=== PATIENT | female | born 1950 | race Caucasian/White ===

== ENCOUNTER 2018-08-16 02:37 | Inpatient (IN) | payer OTHER, MEDICAID ==
[2018-08-16] VITALS (7 sets, daily range): BP systolic 105–157
[~2018-08-16] VITALS: Ht 154.9 cm; Wt 70.3 kg
[2018-08-16] MEDS ORDERED: NACL 0.9% 1,000 ML IV ONE ×2 (02:42→03:00)
[2018-08-16] MEDS ORDERED: MEROPENEM 1 GM in NS 100 ML IV ONE (02:45)
[2018-08-16] MEDS ORDERED: VANCOMYCIN HCL 1,000 MG in NS 250 ML IV ONE (02:45)
[2018-08-16] MEDS ORDERED: VANCOMYCIN HCL 1000 MG/VIAL IV ONE (03:00)
[2018-08-16 03:04] LABS: BASOPHILS # (AUTO) 0.1 K/uL (0.0-0.2); BASOPHILS % (AUTO) 0.8 % (0.0-2.0); HEMATOCRIT 37.5 % (36-48); HEMOGLOBIN 12.2 g/dL (12.0-16.0); LYMPHOCYTES # (AUTO) 0.2 K/uL (1.0-5.5); MEAN CORPUSCULAR HEMOGLOBIN 28 pg (27-31); MEAN CORPUSCULAR HGB CONC 33 % (32-36); MEAN CORPUSCULAR VOLUME 85 fL (79.0-98.0); MONOCYTES # (AUTO) 0.5 K/uL (0.0-1.0); MONOCYTES % (AUTO) 3.3 % (1.7-9.3); NEUTROPHILS # (AUTO) 15.5 K/uL (1.8-7.7); NEUTROPHILS % (AUTO) 94.9 % (40.0-70.0); PLATELET COUNT (AUTO) 415 K/uL (130-430); RED BLOOD CELL COUNT(AUTO) 4.44 MIL/uL (4.2-6.2); RED CELL DISTRIBUTION WIDTH 14.7 % (9.0-15.0); WHITE BLOOD COUNT (AUTO) 16.3 K/uL (4.8-10.8)
[2018-08-16] MEDS ORDERED: MEROPENEM 500 MG VIAL IV ONE (03:09)
[2018-08-16 03:29] LABS: CALCIUM 9.3 mg/dL (8.4-11.0); CREATININE 0.48 mg/dL (0.55-1.30); POTASSIUM 4.2 mmol/L (3.5-5.1)
[2018-08-16 03:35] LABS: ALBUMIN 2.7 g/dL (3.4-4.8); TOTAL BILIRUBIN 3.9 mg/dL (0.0-1.0)
[2018-08-16 03:38] LABS: BILIRUBIN,URINE 3+ (NEGATIVE); BLOOD, URINE 3+ (NEGATIVE); CLARITY/URINE CLEAR (CLEAR); COLOR,URINE AMBER (YELLOW); GLUCOSE,URINE TRACE (NEGATIVE); KETONES,URINE TRACE (NEGATIVE); LEUKOCYTE ESTERASE ,URINE TRACE (NEGATIVE); NITRITE, URINE NEGATIVE (NEGATIVE); PH,URINE 7.5 (5.0-8.0); PROTEIN URINE 2+ (NEGATIVE)
[2018-08-16] MEDS ORDERED: ALBU2.5V7 INH ×2 (03:51→04:22)
[2018-08-16 03:55] LABS: BACTERIA,URINE FEW /HPF (None Seen); RBC,URINE 20-50 /HPF (0-3)
[2018-08-16] MEDS ORDERED: ALBU2TAB4 GT (04:05)
[2018-08-16] MEDS ORDERED: WHEY227P GT (04:08)
[2018-08-16] MEDS ORDERED: BUDE0.5A4 NEB (04:09)
[2018-08-16] MEDS ORDERED: CALC1TAB84 PO (04:10)
[2018-08-16] MEDS ORDERED: CARB200T GT (04:10)
[2018-08-16] MEDS ORDERED: POLY17PO20 GT (04:12)
[2018-08-16] MEDS ORDERED: LEVE500T9 GT (04:13)
[2018-08-16] MEDS ORDERED: LEVO50TA8 GT (04:14)
[2018-08-16] MEDS ORDERED: LISI10TA GT (04:14)
[2018-08-16] MEDS ORDERED: METO25TA6 GT ×2 (04:15→04:16)
[2018-08-16] MEDS ORDERED: MONT10TA25 GT (04:16)
[2018-08-16] MEDS ORDERED: OMEP20CA10 GT (04:17)
[2018-08-16] MEDS ORDERED: MULT-33 GT (04:20)
[2018-08-16] MEDS ORDERED: CIPR7.5D OT (04:23)
[2018-08-16] MEDS ORDERED: LOM2.5 GT (04:25)
[2018-08-16] MEDS ORDERED: BISA-95 RC (04:28)
[2018-08-16] MEDS ORDERED: GUAI5SYR GT (04:33)
[2018-08-16] MEDS ORDERED: IBUP-1969 GT (04:33)
[2018-08-16] MEDS ORDERED: ONDA4TAB5 GT (04:38)
[2018-08-16] MEDS ORDERED: ACET325S17 GT (04:38)
[2018-08-16] MEDS ORDERED: ZINC56.7 TP (04:41)
[2018-08-16] MEDS ORDERED: cloNIDine HCL 0.1 MG TABLET GT PRN (04:45)
[2018-08-16] MEDS ORDERED: SODIUM CHLORIDE GT (04:47)
[2018-08-16] MEDS ORDERED: FLEETMO RC (04:49)
[2018-08-16] MEDS ORDERED: IPRATROPIUM/ALBUTEROL SULFATE 3 ML AMPUL.NEB (DUONEB) INH SCH (06:00)
[2018-08-16] MEDS: NACL 0.9% 1,000 ML IV SCH ×2 (06:57→15:30)
[2018-08-16] MEDS: cefTRIAXone 1 GM in D5W 50 ML IV SCH (09:28)
[2018-08-16] MEDS ORDERED: IPRATROPIUM/ALBUTEROL SULFATE 3 ML AMPUL.NEB (DUONEB) INH PRN (10:45)
[2018-08-16] MEDS ORDERED: MINERAL OIL 133 ML ENEMA RC PRN (10:45)
[2018-08-16] MEDS: ACETAMINOPHEN 325 MG TABLET GT SCH ×4 (11:00→18:13)
[2018-08-16] MEDS: LEVOFLOXACIN 500 MG/D5W 100 ML IV SCH (11:35)
[2018-08-16] MEDS ORDERED: MONTELUKAST 10 MG TABLET GT ONE (11:45)
[2018-08-16] MEDS ORDERED: ALBUTEROL SULFATE 2 MG TABLET GT ONE (11:45)
[2018-08-16] MEDS ORDERED: POLYETHYLENE GLYCOL 3350, 17 GM/ POWD.PACK GT ONE (11:45)
[2018-08-16] MEDS ORDERED: LISINOPRIL 10 MG TABLET (PRINIVIL) GT ONE (11:45)
[2018-08-16] MEDS ORDERED: OMEPRAZOLE 20 MG CAPSULE.DR (PriLOSEC) GT ONE (11:45)
[2018-08-16] MEDS ORDERED: MULTIVITS,CA,MINERALS/IRON/FA 1 TABLET GT ONE (11:45)
[2018-08-16] MEDS: IPRATROPIUM/ALBUTEROL SULFATE 3 ML AMPUL.NEB (DUONEB) INH SCH ×4 (11:53→23:10)
[2018-08-16] MEDS: ACETYLCYSTEINE 20% 4 ML VIAL (RT) INH SCH ×3 (11:53→19:42)
[2018-08-16] MEDS ORDERED: CALCIUM CARBONATE/VITAMIN D3 1 TAB TABLET GT ONE (12:00)
[2018-08-16] MEDS ORDERED: levETIRAcetam 500 MG TABLET GT ONE (12:00)
[2018-08-16] MEDS: NS IV SCH (15:30)
[2018-08-16] MEDS: GENTAMICIN SULFATE IV SCH (15:30)
[2018-08-16] MEDS ORDERED: MIDAZOLAM HCL 5 MG/5 ML VIAL IVP ONE (17:06)
[2018-08-16] MEDS: METOPROLOL TARTRATE 25 MG TABLET GT SCH (18:13)
[2018-08-16] MEDS: BUDESONIDE 0.5 MG/2 ML AMPUL.NEB INH SCH (20:15)
[2018-08-16] MEDS: levETIRAcetam 500 MG TABLET GT SCH (21:16)
[2018-08-16] MEDS: ALBUTEROL SULFATE 2 MG TABLET GT SCH (21:16)
[2018-08-16] MEDS: CALCIUM CARBONATE/VITAMIN D3 1 TAB TABLET GT SCH (21:16)
[2018-08-17] MEDS: ACETAMINOPHEN 325 MG TABLET GT SCH ×6 (00:27→18:54)
[2018-08-17 00:30] VITALS: BP_SYST 123
[2018-08-17] MEDS: NACL 0.9% 1,000 ML IV SCH ×2 (00:32→09:06)
[2018-08-17] MEDS: NS IV SCH ×2 (02:30→15:34)
[2018-08-17] MEDS: GENTAMICIN SULFATE IV SCH ×2 (02:30→15:34)
[2018-08-17] MEDS: IPRATROPIUM/ALBUTEROL SULFATE 3 ML AMPUL.NEB (DUONEB) INH SCH ×6 (04:08→23:02)
[2018-08-17 06:43] LABS: BASOPHILS % (AUTO) 0.3 % (0.0-2.0); EOSINOPHILS # (AUTO) 0.1 K/uL (0.0-0.4); EOSINOPHILS % (AUTO) 1.2 % (0.0-4.0); HEMOGLOBIN 9.6 g/dL (12.0-16.0); LYMPHOCYTES # (AUTO) 0.7 K/uL (1.0-5.5); LYMPHOCYTES % (AUTO) 7.6 % (20.5-51.5); MEAN CORPUSCULAR HEMOGLOBIN 28 pg (27-31); MEAN CORPUSCULAR HGB CONC 33 % (32-36); MEAN CORPUSCULAR VOLUME 86 fL (79.0-98.0); MONOCYTES # (AUTO) 0.5 K/uL (0.0-1.0); MONOCYTES % (AUTO) 4.6 % (1.7-9.3); NEUTROPHILS # (AUTO) 8.4 K/uL (1.8-7.7); NEUTROPHILS % (AUTO) 86.3 % (40.0-70.0); PLATELET COUNT (AUTO) 345 K/uL (130-430); RED BLOOD CELL COUNT(AUTO) 3.39 MIL/uL (4.2-6.2)
[2018-08-17 07:06] LABS: WHITE BLOOD COUNT (AUTO) 9.7 K/uL (4.8-10.8)
[2018-08-17] MEDS: ACETYLCYSTEINE 20% 4 ML VIAL (RT) INH SCH ×4 (07:08→19:37)
[2018-08-17] MEDS: BUDESONIDE 0.5 MG/2 ML AMPUL.NEB INH SCH ×2 (07:08→20:07)
[2018-08-17 07:47] VITALS: BP_SYST 151
[2018-08-17 08:02] LABS: ALBUMIN 2.3 g/dL (3.4-4.8); CALCIUM 9.4 mg/dL (8.4-11.0); CREATININE 0.42 mg/dL (0.55-1.30); POTASSIUM 3.4 mmol/L (3.5-5.1); TOTAL BILIRUBIN 3.2 mg/dL (0.0-1.0)
[2018-08-17 08:06] LABS: HEPATITIS A AB, IgM Negative (Negative); HEPATITIS B CORE AB, IgM Negative (Negative); HEPATITIS B SURFACE AG Negative (Negative)
[2018-08-17] MEDS: LEVOFLOXACIN 500 MG/D5W 100 ML IV SCH (09:03)
[2018-08-17] MEDS: cefTRIAXone 1 GM in D5W 50 ML IV SCH (09:03)
[2018-08-17] MEDS: MULTIVITS,CA,MINERALS/IRON/FA 1 TABLET GT SCH (09:04)
[2018-08-17] MEDS: LEVOTHYROXINE SODIUM 0.05 MG TABLET GT SCH (09:04)
[2018-08-17] MEDS: OMEPRAZOLE 20 MG CAPSULE.DR (PriLOSEC) GT SCH (09:04)
[2018-08-17] MEDS: POLYETHYLENE GLYCOL 3350, 17 GM/ POWD.PACK GT SCH (09:04)
[2018-08-17] MEDS: levETIRAcetam 500 MG TABLET GT SCH ×2 (09:04→21:45)
[2018-08-17] MEDS: MONTELUKAST 10 MG TABLET GT SCH (09:04)
[2018-08-17] MEDS: CALCIUM CARBONATE/VITAMIN D3 1 TAB TABLET GT SCH ×2 (09:05→21:45)
[2018-08-17] MEDS: LISINOPRIL 10 MG TABLET (PRINIVIL) GT SCH (09:05)
[2018-08-17] MEDS: ALBUTEROL SULFATE 2 MG TABLET GT SCH ×2 (09:05→21:45)
[2018-08-17 12:29] VITALS: BP_SYST 146
[2018-08-17 16:08] VITALS: BP_SYST 143
[2018-08-17] MEDS ORDERED: POTASSIUM CHLORIDE 20 MEQ/PKT PACKET PO ONE (17:30)
[2018-08-17] MEDS: METOPROLOL TARTRATE 25 MG TABLET GT SCH (18:54)
[2018-08-17 20:00] VITALS: BP_SYST 137
[2018-08-18 01:18] VITALS: BP_SYST 144
[2018-08-18] MEDS: IPRATROPIUM/ALBUTEROL SULFATE 3 ML AMPUL.NEB (DUONEB) INH SCH ×6 (04:01→23:15)
[2018-08-18] MEDS: ACETAMINOPHEN 325 MG TABLET GT SCH ×6 (04:02→20:43)
[2018-08-18] MEDS: NS IV SCH ×2 (04:03→14:03)
[2018-08-18] MEDS: GENTAMICIN SULFATE IV SCH ×2 (04:03→14:03)
[2018-08-18 06:25] LABS: BASOPHILS % (AUTO) 0.5 % (0.0-2.0); EOSINOPHILS # (AUTO) 0.3 K/uL (0.0-0.4); EOSINOPHILS % (AUTO) 5.1 % (0.0-4.0); HEMATOCRIT 31.3 % (36-48); HEMOGLOBIN 10.3 g/dL (12.0-16.0); LYMPHOCYTES # (AUTO) 0.7 K/uL (1.0-5.5); MEAN CORPUSCULAR HEMOGLOBIN 28 pg (27-31); MEAN CORPUSCULAR HGB CONC 33 % (32-36); MEAN CORPUSCULAR VOLUME 85 fL (79.0-98.0); MONOCYTES # (AUTO) 0.4 K/uL (0.0-1.0); MONOCYTES % (AUTO) 7.2 % (1.7-9.3); NEUTROPHILS # (AUTO) 4.7 K/uL (1.8-7.7); NEUTROPHILS % (AUTO) 76.2 % (40.0-70.0); PLATELET COUNT (AUTO) 385 K/uL (130-430); RED BLOOD CELL COUNT(AUTO) 3.68 MIL/uL (4.2-6.2); RED CELL DISTRIBUTION WIDTH 15.2 % (9.0-15.0)
[2018-08-18 06:58] LABS: WHITE BLOOD COUNT (AUTO) 6.2 K/uL (4.8-10.8)
[2018-08-18] MEDS: ACETYLCYSTEINE 20% 4 ML VIAL (RT) INH SCH ×4 (07:09→19:32)
[2018-08-18 07:10] LABS: ALBUMIN 2.5 g/dL (3.4-4.8); CALCIUM 9.8 mg/dL (8.4-11.0); CREATININE 0.45 mg/dL (0.55-1.30); POTASSIUM 3.8 mmol/L (3.5-5.1); TOTAL BILIRUBIN 1.8 mg/dL (0.0-1.0)
[2018-08-18] MEDS: BUDESONIDE 0.5 MG/2 ML AMPUL.NEB INH SCH ×2 (07:10→19:58)
[2018-08-18 08:11] VITALS: BP_SYST 144
[2018-08-18] MEDS: BISACODYL 10 MG/SUPPOSITORY RC SCH ×2 (09:00→09:08)
[2018-08-18] MEDS: cefTRIAXone 1 GM in D5W 50 ML IV SCH (09:03)
[2018-08-18] MEDS: OMEPRAZOLE 20 MG CAPSULE.DR (PriLOSEC) GT SCH (09:08)
[2018-08-18] MEDS: LEVOTHYROXINE SODIUM 0.05 MG TABLET GT SCH (09:08)
[2018-08-18] MEDS: MULTIVITS,CA,MINERALS/IRON/FA 1 TABLET GT SCH (09:08)
[2018-08-18] MEDS: MONTELUKAST 10 MG TABLET GT SCH (09:08)
[2018-08-18] MEDS: POTASSIUM CHLORIDE 20 MEQ/PKT PACKET PO SCH (09:08)
[2018-08-18] MEDS: CALCIUM CARBONATE/VITAMIN D3 1 TAB TABLET GT SCH ×2 (09:09→20:42)
[2018-08-18] MEDS: LISINOPRIL 10 MG TABLET (PRINIVIL) GT SCH (09:09)
[2018-08-18] MEDS: POLYETHYLENE GLYCOL 3350, 17 GM/ POWD.PACK GT SCH (09:09)
[2018-08-18] MEDS: levETIRAcetam 500 MG TABLET GT SCH ×2 (09:09→20:43)
[2018-08-18] MEDS: ALBUTEROL SULFATE 2 MG TABLET GT SCH ×2 (09:40→20:42)
[2018-08-18] MEDS: NACL 0.9% 1,000 ML IV SCH (10:30)
[2018-08-18 12:21] VITALS: BP_SYST 142
[2018-08-18 15:54] VITALS: BP_SYST 133
[2018-08-18] MEDS: METOPROLOL TARTRATE 25 MG TABLET GT SCH (17:54)
[2018-08-18 20:15] VITALS: BP_SYST 118
[2018-08-18 23:37] VITALS: BP_SYST 122
[2018-08-19] MEDS: IPRATROPIUM/ALBUTEROL SULFATE 3 ML AMPUL.NEB (DUONEB) INH SCH ×6 (02:10→22:39)
[2018-08-19] MEDS: NS IV SCH (03:46)
[2018-08-19] MEDS: GENTAMICIN SULFATE IV SCH (03:46)
[2018-08-19] MEDS: ACETAMINOPHEN 325 MG TABLET GT SCH ×6 (04:03→21:55)
[2018-08-19] MEDS: NACL 0.9% 1,000 ML IV SCH (06:31)
[2018-08-19 06:33] VITALS: BP_SYST 131
[2018-08-19 06:40] LABS: BASOPHILS % (AUTO) 0.6 % (0.0-2.0); EOSINOPHILS # (AUTO) 0.4 K/uL (0.0-0.4); HEMATOCRIT 31.7 % (36-48); HEMOGLOBIN 10.5 g/dL (12.0-16.0); LYMPHOCYTES # (AUTO) 0.8 K/uL (1.0-5.5); LYMPHOCYTES % (AUTO) 14.9 % (20.5-51.5); MEAN CORPUSCULAR HEMOGLOBIN 28 pg (27-31); MEAN CORPUSCULAR HGB CONC 33 % (32-36); MEAN CORPUSCULAR VOLUME 85 fL (79.0-98.0); MONOCYTES # (AUTO) 0.4 K/uL (0.0-1.0); MONOCYTES % (AUTO) 6.7 % (1.7-9.3); NEUTROPHILS # (AUTO) 3.8 K/uL (1.8-7.7); NEUTROPHILS % (AUTO) 70.8 % (40.0-70.0); PLATELET COUNT (AUTO) 444 K/uL (130-430); RED BLOOD CELL COUNT(AUTO) 3.73 MIL/uL (4.2-6.2); RED CELL DISTRIBUTION WIDTH 15.3 % (9.0-15.0); WHITE BLOOD COUNT (AUTO) 5.4 K/uL (4.8-10.8)
[2018-08-19 06:59] LABS: CALCIUM 9.7 mg/dL (8.4-11.0); CREATININE 0.48 mg/dL (0.55-1.30); POTASSIUM 4.8 mmol/L (3.5-5.1)
[2018-08-19 07:14] LABS: ALBUMIN 2.5 g/dL (3.4-4.8); TOTAL BILIRUBIN 1.4 mg/dL (0.0-1.0)
[2018-08-19] MEDS: ACETYLCYSTEINE 20% 4 ML VIAL (RT) INH SCH ×4 (07:26→19:36)
[2018-08-19] MEDS: BUDESONIDE 0.5 MG/2 ML AMPUL.NEB INH SCH ×2 (07:27→19:37)
[2018-08-19] MEDS: MONTELUKAST 10 MG TABLET GT SCH (09:00)
[2018-08-19] MEDS: CALCIUM CARBONATE/VITAMIN D3 1 TAB TABLET GT SCH ×2 (09:00→21:30)
[2018-08-19] MEDS: LISINOPRIL 10 MG TABLET (PRINIVIL) GT SCH (09:00)
[2018-08-19] MEDS: LEVOTHYROXINE SODIUM 0.05 MG TABLET GT SCH (09:00)
[2018-08-19] MEDS: ALBUTEROL SULFATE 2 MG TABLET GT SCH ×2 (09:00→21:55)
[2018-08-19] MEDS: MULTIVITS,CA,MINERALS/IRON/FA 1 TABLET GT SCH (09:00)
[2018-08-19] MEDS: levETIRAcetam 500 MG TABLET GT SCH ×2 (09:00→21:31)
[2018-08-19] MEDS: OMEPRAZOLE 20 MG CAPSULE.DR (PriLOSEC) GT SCH (09:00)
[2018-08-19] MEDS: POLYETHYLENE GLYCOL 3350, 17 GM/ POWD.PACK GT SCH (09:00)
[2018-08-19] MEDS: POTASSIUM CHLORIDE 20 MEQ/PKT PACKET PO SCH (09:00)
[2018-08-19] MEDS ORDERED: MEROPENEM 1 GM in NS 100 ML IV ONE (11:15)
[2018-08-19 12:28] VITALS: BP_SYST 120
[2018-08-19] MEDS: SODIUM CHLORIDE 500 MG TABLET GT SCH ×2 (15:00→21:30)
[2018-08-19] MEDS ORDERED: IOHEXOL 50 ML IV ONE (15:04)
[2018-08-19 16:20] VITALS: BP_SYST 121
[2018-08-19] MEDS ORDERED: fentaNYL CITRATE/PF 100 MCG/2 ML AMP IVP PRN ×2 (16:30)
[2018-08-19] MEDS ORDERED: ONDANSETRON HCL 4 MG/2 ML VIAL IVP PRN (16:30)
[2018-08-19] MEDS ORDERED: PROPOFOL 200MG/ 20ML VIAL (DIPRIVAN) IV ONE (17:06)
[2018-08-19] MEDS ORDERED: ROCURONIUM BROMIDE 10 MG/ML (ZEMURON) ONE (17:06)
[2018-08-19] MEDS ORDERED: LR 1,000 ML IV.SOLN IV ONE (17:06)
[2018-08-19] MEDS ORDERED: INDOMETHACIN 50 MG SUPP.RECT ONE (17:06)
[2018-08-19] MEDS ORDERED: SEVOFLURANE 15 MIN GAS INH ONE (17:06)
[2018-08-19] MEDS ORDERED: LevALBUTEROL HCL 1.25 MG/0.5 ML *CONC.* VIAL.NEB (XOPENEX CONC.) INH ONE (17:18)
[2018-08-19 18:00] VITALS: BP_SYST 139
[2018-08-19] MEDS: METOPROLOL TARTRATE 25 MG TABLET GT SCH (18:05)
[2018-08-19 20:00] VITALS: BP_SYST 122
[2018-08-19] MEDS: MEROPENEM 1 GM in NS 100 ML IV SCH (21:31)
[2018-08-20 00:31] VITALS: BP_SYST 107
[2018-08-20] MEDS: NACL 0.9% 1,000 ML IV SCH ×2 (02:46→20:59)
[2018-08-20] MEDS: ACETAMINOPHEN 325 MG TABLET GT SCH ×6 (02:47→23:34)
[2018-08-20] MEDS: IPRATROPIUM/ALBUTEROL SULFATE 3 ML AMPUL.NEB (DUONEB) INH SCH ×6 (03:01→22:44)
[2018-08-20 07:19] LABS: BASOPHILS % (AUTO) 0.5 % (0.0-2.0); EOSINOPHILS # (AUTO) 0.2 K/uL (0.0-0.4); EOSINOPHILS % (AUTO) 3.2 % (0.0-4.0); HEMATOCRIT 33.6 % (36-48); LYMPHOCYTES # (AUTO) 0.7 K/uL (1.0-5.5); LYMPHOCYTES % (AUTO) 11.9 % (20.5-51.5); MEAN CORPUSCULAR HEMOGLOBIN 28 pg (27-31); MEAN CORPUSCULAR HGB CONC 33 % (32-36); MEAN CORPUSCULAR VOLUME 86 fL (79.0-98.0); MONOCYTES # (AUTO) 0.4 K/uL (0.0-1.0); MONOCYTES % (AUTO) 6.5 % (1.7-9.3); NEUTROPHILS # (AUTO) 4.7 K/uL (1.8-7.7); NEUTROPHILS % (AUTO) 77.9 % (40.0-70.0); PLATELET COUNT (AUTO) 536 K/uL (130-430); RED BLOOD CELL COUNT(AUTO) 3.92 MIL/uL (4.2-6.2); RED CELL DISTRIBUTION WIDTH 15.2 % (9.0-15.0); WHITE BLOOD COUNT (AUTO) 6.1 K/uL (4.8-10.8)
[2018-08-20 07:44] LABS: ALBUMIN 2.6 g/dL (3.4-4.8); CALCIUM 10.1 mg/dL (8.4-11.0); CREATININE 0.52 mg/dL (0.55-1.30); POTASSIUM 4.6 mmol/L (3.5-5.1); TOTAL BILIRUBIN 1.2 mg/dL (0.0-1.0)
[2018-08-20 08:46] VITALS: BP_SYST 147
[2018-08-20] MEDS: POTASSIUM CHLORIDE 20 MEQ/PKT PACKET PO SCH (08:47)
[2018-08-20] MEDS: MEROPENEM 1 GM in NS 100 ML IV SCH ×2 (08:47→20:58)
[2018-08-20] MEDS: OMEPRAZOLE 20 MG CAPSULE.DR (PriLOSEC) GT SCH (08:48)
[2018-08-20] MEDS: POLYETHYLENE GLYCOL 3350, 17 GM/ POWD.PACK GT SCH (08:48)
[2018-08-20] MEDS: SODIUM CHLORIDE 500 MG TABLET GT SCH ×3 (08:48→20:56)
[2018-08-20] MEDS: levETIRAcetam 500 MG TABLET GT SCH ×2 (08:48→20:56)
[2018-08-20] MEDS: CALCIUM CARBONATE/VITAMIN D3 1 TAB TABLET GT SCH ×2 (08:48→20:56)
[2018-08-20] MEDS: BISACODYL 10 MG/SUPPOSITORY RC SCH (08:49)
[2018-08-20] MEDS: MONTELUKAST 10 MG TABLET GT SCH (08:49)
[2018-08-20] MEDS: ALBUTEROL SULFATE 2 MG TABLET GT SCH ×2 (08:49→20:56)
[2018-08-20] MEDS: MULTIVITS,CA,MINERALS/IRON/FA 1 TABLET GT SCH (08:49)
[2018-08-20] MEDS: LISINOPRIL 10 MG TABLET (PRINIVIL) GT SCH (08:49)
[2018-08-20] MEDS: LEVOTHYROXINE SODIUM 0.05 MG TABLET GT SCH (08:49)
[2018-08-20 11:16] VITALS: BP_SYST 130
[2018-08-20 15:21] VITALS: BP_SYST 127
[2018-08-20] MEDS: ACETYLCYSTEINE 20% 4 ML VIAL (RT) INH SCH ×4 (16:18→20:10)
[2018-08-20] MEDS: BUDESONIDE 0.5 MG/2 ML AMPUL.NEB INH SCH ×2 (16:19→20:10)
[2018-08-20] MEDS: METOPROLOL TARTRATE 25 MG TABLET GT SCH (17:47)
[2018-08-20 20:00] VITALS: BP_SYST 140
[2018-08-21 00:54] VITALS: BP_SYST 128
[2018-08-21] MEDS: ACETAMINOPHEN 325 MG TABLET GT SCH ×2 (03:36→06:13)
[2018-08-21] MEDS: IPRATROPIUM/ALBUTEROL SULFATE 3 ML AMPUL.NEB (DUONEB) INH SCH ×6 (04:37→23:08)
[2018-08-21] MEDS: BUDESONIDE 0.5 MG/2 ML AMPUL.NEB INH SCH ×2 (07:19→20:10)
[2018-08-21] MEDS: ACETYLCYSTEINE 20% 4 ML VIAL (RT) INH SCH ×4 (07:19→19:49)
[2018-08-21 08:15] VITALS: BP_SYST 126
[2018-08-21] MEDS: LEVOTHYROXINE SODIUM 0.05 MG TABLET GT SCH (08:24)
[2018-08-21] MEDS: levETIRAcetam 500 MG TABLET GT SCH ×2 (08:24→20:51)
[2018-08-21] MEDS: POTASSIUM CHLORIDE 20 MEQ/PKT PACKET PO SCH (08:24)
[2018-08-21] MEDS: MULTIVITS,CA,MINERALS/IRON/FA 1 TABLET GT SCH (08:24)
[2018-08-21] MEDS: MONTELUKAST 10 MG TABLET GT SCH (08:24)
[2018-08-21] MEDS: CALCIUM CARBONATE/VITAMIN D3 1 TAB TABLET GT SCH ×2 (08:24→20:51)
[2018-08-21] MEDS: MEROPENEM 1 GM in NS 100 ML IV SCH ×2 (08:24→20:51)
[2018-08-21] MEDS: OMEPRAZOLE 20 MG CAPSULE.DR (PriLOSEC) GT SCH (08:24)
[2018-08-21] MEDS: LISINOPRIL 10 MG TABLET (PRINIVIL) GT SCH (08:25)
[2018-08-21] MEDS: POLYETHYLENE GLYCOL 3350, 17 GM/ POWD.PACK GT SCH (08:25)
[2018-08-21] MEDS: SODIUM CHLORIDE 500 MG TABLET GT SCH ×3 (08:25→20:51)
[2018-08-21] MEDS: ALBUTEROL SULFATE 2 MG TABLET GT SCH ×2 (08:43→20:51)
[2018-08-21 11:21] VITALS: BP_SYST 128
[2018-08-21 15:47] VITALS: BP_SYST 123
[2018-08-21] MEDS: NACL 0.9% 1,000 ML IV SCH (17:19)
[2018-08-21] MEDS: METOPROLOL TARTRATE 25 MG TABLET GT SCH (17:19)
[2018-08-21 19:05] VITALS: BP_SYST 129
[2018-08-21 23:32] VITALS: BP_SYST 115
[2018-08-22] MEDS: IPRATROPIUM/ALBUTEROL SULFATE 3 ML AMPUL.NEB (DUONEB) INH SCH ×5 (03:18→19:38)
[2018-08-22 07:07] LABS: CALCIUM 9.6 mg/dL (8.4-11.0); CREATININE 0.51 mg/dL (0.55-1.30); POTASSIUM 4.9 mmol/L (3.5-5.1)
[2018-08-22 07:09] LABS: INR 1.3 (0.8-1.2); PROTHROMBIN TIME 13.4 SECS (9.5-12.5)
[2018-08-22 07:12] LABS: BASOPHILS % (AUTO) 0.7 % (0.0-2.0); EOSINOPHILS # (AUTO) 0.3 K/uL (0.0-0.4); EOSINOPHILS % (AUTO) 4.9 % (0.0-4.0); HEMOGLOBIN 11.2 g/dL (12.0-16.0); LYMPHOCYTES # (AUTO) 1.1 K/uL (1.0-5.5); LYMPHOCYTES % (AUTO) 17.2 % (20.5-51.5); MEAN CORPUSCULAR HEMOGLOBIN 28 pg (27-31); MEAN CORPUSCULAR HGB CONC 33 % (32-36); MEAN CORPUSCULAR VOLUME 85 fL (79.0-98.0); MONOCYTES # (AUTO) 0.4 K/uL (0.0-1.0); MONOCYTES % (AUTO) 6.7 % (1.7-9.3); NEUTROPHILS # (AUTO) 4.6 K/uL (1.8-7.7); NEUTROPHILS % (AUTO) 70.5 % (40.0-70.0); PLATELET COUNT (AUTO) 589 K/uL (130-430); RED BLOOD CELL COUNT(AUTO) 3.99 MIL/uL (4.2-6.2); WHITE BLOOD COUNT (AUTO) 6.6 K/uL (4.8-10.8)
[2018-08-22 07:18] LABS: ALBUMIN 2.6 g/dL (3.4-4.8); TOTAL BILIRUBIN 0.9 mg/dL (0.0-1.0)
[2018-08-22] MEDS: BUDESONIDE 0.5 MG/2 ML AMPUL.NEB INH SCH ×2 (07:19→20:08)
[2018-08-22] MEDS: ACETYLCYSTEINE 20% 4 ML VIAL (RT) INH SCH ×4 (07:19→19:38)
[2018-08-22] MEDS: MULTIVITS,CA,MINERALS/IRON/FA 1 TABLET GT SCH (08:19)
[2018-08-22] MEDS: ALBUTEROL SULFATE 2 MG TABLET GT SCH ×2 (08:19→21:00)
[2018-08-22] MEDS: POTASSIUM CHLORIDE 20 MEQ/PKT PACKET PO SCH (08:19)
[2018-08-22] MEDS: levETIRAcetam 500 MG TABLET GT SCH ×2 (08:19→21:00)
[2018-08-22] MEDS: POLYETHYLENE GLYCOL 3350, 17 GM/ POWD.PACK GT SCH (08:19)
[2018-08-22] MEDS: MEROPENEM 1 GM in NS 100 ML IV SCH ×2 (08:19→20:09)
[2018-08-22] MEDS: CALCIUM CARBONATE/VITAMIN D3 1 TAB TABLET GT SCH ×2 (08:20→21:00)
[2018-08-22] MEDS: MONTELUKAST 10 MG TABLET GT SCH (08:20)
[2018-08-22] MEDS: OMEPRAZOLE 20 MG CAPSULE.DR (PriLOSEC) GT SCH (08:20)
[2018-08-22] MEDS: LEVOTHYROXINE SODIUM 0.05 MG TABLET GT SCH (08:20)
[2018-08-22] MEDS: SODIUM CHLORIDE 500 MG TABLET GT SCH ×3 (08:20→21:00)
[2018-08-22] MEDS: LISINOPRIL 10 MG TABLET (PRINIVIL) GT SCH (08:22)
[2018-08-22] MEDS: BISACODYL 10 MG/SUPPOSITORY RC SCH (09:00)
[2018-08-22 11:21] VITALS: BP_SYST 127
[2018-08-22] MEDS ORDERED: PHYTONADIONE 10 MG/ML AMP SUBCUT ONE (13:00)
[2018-08-22] MEDS ORDERED: NYSTATIN 15 GM TOPICAL POWDER TP ONE (14:30)
[2018-08-22] MEDS: NACL 0.9% 1,000 ML IV SCH (14:32)
[2018-08-22 15:46] VITALS: BP_SYST 117
[2018-08-22] MEDS: METOPROLOL TARTRATE 25 MG TABLET GT SCH (17:48)
[2018-08-22] MEDS: NYSTATIN 15 GM TOPICAL POWDER TP SCH (21:00)
[2018-08-23] MEDS: BUDESONIDE 0.5 MG/2 ML AMPUL.NEB INH SCH ×2 (07:00→19:55)
[2018-08-23] MEDS: MULTIVITS,CA,MINERALS/IRON/FA 1 TABLET GT SCH (09:00)
[2018-08-23] MEDS: levETIRAcetam 500 MG TABLET GT SCH ×2 (09:00→20:29)
[2018-08-23] MEDS: NYSTATIN 15 GM TOPICAL POWDER TP SCH ×2 (09:00→20:30)
[2018-08-23] MEDS: LISINOPRIL 10 MG TABLET (PRINIVIL) GT SCH (09:00)
[2018-08-23] MEDS: MEROPENEM 1 GM in NS 100 ML IV SCH ×2 (09:00→20:28)
[2018-08-23] MEDS: OMEPRAZOLE 20 MG CAPSULE.DR (PriLOSEC) GT SCH (09:00)
[2018-08-23] MEDS: SODIUM CHLORIDE 500 MG TABLET GT SCH ×3 (09:00→20:29)
[2018-08-23] MEDS: MONTELUKAST 10 MG TABLET GT SCH (09:00)
[2018-08-23] MEDS: CALCIUM CARBONATE/VITAMIN D3 1 TAB TABLET GT SCH ×2 (09:00→20:29)
[2018-08-23] MEDS: POLYETHYLENE GLYCOL 3350, 17 GM/ POWD.PACK GT SCH (09:00)
[2018-08-23] MEDS: POTASSIUM CHLORIDE 20 MEQ/PKT PACKET PO SCH (09:00)
[2018-08-23] MEDS: LEVOTHYROXINE SODIUM 0.05 MG TABLET GT SCH (09:00)
[2018-08-23] MEDS: ALBUTEROL SULFATE 2 MG TABLET GT SCH ×2 (09:00→20:29)
[2018-08-23 15:05] VITALS: BP_SYST 134
[2018-08-23] MEDS: IPRATROPIUM/ALBUTEROL SULFATE 3 ML AMPUL.NEB (DUONEB) INH SCH ×3 (16:03→23:06)
[2018-08-23] MEDS: ACETYLCYSTEINE 20% 4 ML VIAL (RT) INH SCH ×2 (16:03→19:30)
[2018-08-23] MEDS: NACL 0.9% 1,000 ML IV SCH (16:34)
[2018-08-23] MEDS: METOPROLOL TARTRATE 25 MG TABLET GT SCH (18:22)
[2018-08-23 20:00] VITALS: BP_SYST 143
[2018-08-23 21:15] LABS: BASOPHILS % (AUTO) 0.6 % (0.0-2.0); EOSINOPHILS % (AUTO) 0.3 % (0.0-4.0); HEMATOCRIT 32.5 % (36-48); HEMOGLOBIN 10.6 g/dL (12.0-16.0); LYMPHOCYTES # (AUTO) 1.4 K/uL (1.0-5.5); LYMPHOCYTES % (AUTO) 19.9 % (20.5-51.5); MEAN CORPUSCULAR HEMOGLOBIN 28 pg (27-31); MEAN CORPUSCULAR HGB CONC 33 % (32-36); MEAN CORPUSCULAR VOLUME 86 fL (79.0-98.0); MONOCYTES # (AUTO) 0.4 K/uL (0.0-1.0); MONOCYTES % (AUTO) 5.1 % (1.7-9.3); NEUTROPHILS # (AUTO) 5.1 K/uL (1.8-7.7); NEUTROPHILS % (AUTO) 74.1 % (40.0-70.0); PLATELET COUNT (AUTO) 559 K/uL (130-430); RED BLOOD CELL COUNT(AUTO) 3.77 MIL/uL (4.2-6.2); RED CELL DISTRIBUTION WIDTH 15.2 % (9.0-15.0); WHITE BLOOD COUNT (AUTO) 6.9 K/uL (4.8-10.8)
[2018-08-23 21:29] LABS: ALBUMIN 2.7 g/dL (3.4-4.8); CALCIUM 9.8 mg/dL (8.4-11.0); CREATININE 0.43 mg/dL (0.55-1.30); POTASSIUM 4.7 mmol/L (3.5-5.1); TOTAL BILIRUBIN 0.9 mg/dL (0.0-1.0)
[2018-08-23 23:45] VITALS: BP_SYST 116
[2018-08-24] MEDS: IPRATROPIUM/ALBUTEROL SULFATE 3 ML AMPUL.NEB (DUONEB) INH SCH ×4 (01:59→15:29)
[2018-08-24 07:16] LABS: BASOPHILS # (AUTO) 0.1 K/uL (0.0-0.2); BASOPHILS % (AUTO) 1.1 % (0.0-2.0); EOSINOPHILS # (AUTO) 0.2 K/uL (0.0-0.4); HEMATOCRIT 33.1 % (36-48); HEMOGLOBIN 10.8 g/dL (12.0-16.0); LYMPHOCYTES # (AUTO) 0.9 K/uL (1.0-5.5); LYMPHOCYTES % (AUTO) 17.1 % (20.5-51.5); MEAN CORPUSCULAR HEMOGLOBIN 28 pg (27-31); MEAN CORPUSCULAR HGB CONC 33 % (32-36); MEAN CORPUSCULAR VOLUME 86 fL (79.0-98.0); MONOCYTES # (AUTO) 0.4 K/uL (0.0-1.0); MONOCYTES % (AUTO) 7.9 % (1.7-9.3); NEUTROPHILS # (AUTO) 3.9 K/uL (1.8-7.7); NEUTROPHILS % (AUTO) 70.9 % (40.0-70.0); PLATELET COUNT (AUTO) 561 K/uL (130-430); RED BLOOD CELL COUNT(AUTO) 3.86 MIL/uL (4.2-6.2); WHITE BLOOD COUNT (AUTO) 5.4 K/uL (4.8-10.8)
[2018-08-24] MEDS: BUDESONIDE 0.5 MG/2 ML AMPUL.NEB INH SCH (07:24)
[2018-08-24] MEDS: ACETYLCYSTEINE 20% 4 ML VIAL (RT) INH SCH ×3 (07:24→15:30)
[2018-08-24 07:40] LABS: ALBUMIN 2.7 g/dL (3.4-4.8); CALCIUM 9.6 mg/dL (8.4-11.0); CREATININE 0.49 mg/dL (0.55-1.30); POTASSIUM 4.5 mmol/L (3.5-5.1); TOTAL BILIRUBIN 0.8 mg/dL (0.0-1.0)
[2018-08-24 08:00] VITALS: BP_SYST 112
[2018-08-24] MEDS: NYSTATIN 15 GM TOPICAL POWDER TP SCH (09:00)
[2018-08-24] MEDS: MEROPENEM 1 GM in NS 100 ML IV SCH ×2 (09:24→15:33)
[2018-08-24] MEDS: BISACODYL 10 MG/SUPPOSITORY RC SCH (09:24)
[2018-08-24] MEDS: levETIRAcetam 500 MG TABLET GT SCH (09:24)
[2018-08-24] MEDS: POTASSIUM CHLORIDE 20 MEQ/PKT PACKET PO SCH (09:24)
[2018-08-24] MEDS: MULTIVITS,CA,MINERALS/IRON/FA 1 TABLET GT SCH (09:25)
[2018-08-24] MEDS: LISINOPRIL 10 MG TABLET (PRINIVIL) GT SCH (09:25)
[2018-08-24] MEDS: MONTELUKAST 10 MG TABLET GT SCH (09:25)
[2018-08-24] MEDS: OMEPRAZOLE 20 MG CAPSULE.DR (PriLOSEC) GT SCH (09:25)
[2018-08-24] MEDS: LEVOTHYROXINE SODIUM 0.05 MG TABLET GT SCH (09:25)
[2018-08-24] MEDS: CALCIUM CARBONATE/VITAMIN D3 1 TAB TABLET GT SCH (09:25)
[2018-08-24] MEDS: POLYETHYLENE GLYCOL 3350, 17 GM/ POWD.PACK GT SCH (09:26)
[2018-08-24] MEDS: SODIUM CHLORIDE 500 MG TABLET GT SCH ×2 (09:44→14:56)
[2018-08-24] MEDS: ALBUTEROL SULFATE 2 MG TABLET GT SCH (09:44)
[2018-08-24 12:04] VITALS: BP_SYST 110
[2018-08-24 15:03] VITALS: BP_SYST 122
[2018-08-24 15:54] VITALS: BP_SYST 122
[2018-08-24] MEDS ORDERED: MEROPENEM 1 GM IVPB PREMIX 50 ML IV SCH (21:00)
== END 2018-08-24 16:30 | disposition home or self-care (01) | DRG 871 ==
LOC: SED 02:37 → STU 04:57 → SMU 08-18 16:47
PROVIDERS: ADMIT Internal Medicine; ATTEND Internal Medicine
PROC: 0FJB8ZZ Inspection of Hepatobiliary Duct, Via Natural or Artificial Opening Endoscopic (ICD-10-PCS; 2018-08-19)
PROC: 0DJ08ZZ Inspection of Upper Intestinal Tract, Via Natural or Artificial Opening Endoscopic (ICD-10-PCS; 2018-08-19)
PROC: BF131ZZ Fluoroscopy of Gallbladder and Bile Ducts using Low Osmolar Contrast (ICD-10-PCS; principal; 2018-08-23)
DX: A41.51 Sepsis due to Escherichia coli [E. coli] (principal); G93.41 Metabolic encephalopathy; E43 Unspecified severe protein-calorie malnutrition; J44.1 Chronic obstructive pulmonary disease with (acute) exacerbation; E87.1 Hypo-osmolality and hyponatremia; F73 Profound intellectual disabilities; N39.0 Urinary tract infection, site not specified; R17 Unspecified jaundice; K80.32 Calculus of bile duct with acute cholangitis without obstruction; E03.9 Hypothyroidism, unspecified; E78.5 Hyperlipidemia, unspecified; F03.90 Unspecified dementia, unspecified severity, without behavioral disturbance, psychotic disturbance, mood disturbance, and anxiety; G40.909 Epilepsy, unspecified, not intractable, without status epilepticus; I10 Essential (primary) hypertension; I25.10 Atherosclerotic heart disease of native coronary artery without angina pectoris; J45.909 Unspecified asthma, uncomplicated; M19.90 Unspecified osteoarthritis, unspecified site; R13.10 Dysphagia, unspecified; E87.6 Hypokalemia; D64.9 Anemia, unspecified; K57.10 Diverticulosis of small intestine without perforation or abscess without bleeding; Q38.7 Congenital pharyngeal pouch; Z90.49 Acquired absence of other specified parts of digestive tract; Z93.1 Gastrostomy status; I25.2 Old myocardial infarction; Z79.899 Other long term (current) drug therapy; Z68.29 Body mass index [BMI] 29.0-29.9, adult
CPT/HCPCS: 36415; 36600; 70450-TC; 71045; 71270-TC; 74181; 76000; 76700-TC; 80053; 80074; 80156-TC; 80170-TC; 81000-TC; 82803-TC; 83605; 83690-TC; 83735-TC; 85025; 85610-TC; 85730-TC; 87040-TC; 87081; 87086; 87186-TC; 93005; 94640; 94760; 96365; 96366; 96367; 97110-GP; 97112-GP; 99291; G0378; J0696; J1580; J1956; J2185; J2250; J2704; J3370; J3430; J7030; J7050; J7060; J7120; J7608; J7612; J7620; J7626; Q9967

== ENCOUNTER 2019-03-02 08:53 | Inpatient (IN) | payer OTHER, MEDICAID ==
[2019-03-02] VITALS (12 sets, daily range): BP systolic 91–159
[~2019-03-02] VITALS: Ht 154.9 cm; Wt 68.5 kg
[~2019-03-02 08:53] MED LIST: ACET325S17 GT; ALBU2.5V7 INH; ALBU2TAB4 GT; BISA-95 RC; BUDE0.5A4 NEB; CALC1TAB84 PO; CARB200T GT; CIPR7.5D OT; FLEETMO RC; GUAI5SYR GT; IBUP-1969 GT; LEVE500T9 GT; LEVO50TA8 GT; LISI10TA GT; LOM2.5 GT; METO25TA6 GT; MONT10TA25 GT; MULT-33 GT; OMEP20CA11 GT; ONDA4TAB5 GT; POLY17PO20 GT; SODIUM CHLORIDE GT; WHEY227P GT; ZINC56.7 TP
[2019-03-02] MEDS ORDERED: NACL 0.9% 1,000 ML IV ONE (09:00)
[2019-03-02 09:40] LABS: BASOPHILS % (AUTO) 0.5 % (0.0-2.0); EOSINOPHILS # (AUTO) 0.1 K/uL (0.0-0.4); EOSINOPHILS % (AUTO) 1.9 % (0.0-4.0); HEMATOCRIT 36.8 % (36-48); HEMOGLOBIN 12.5 g/dL (12.0-16.0); LYMPHOCYTES # (AUTO) 0.7 K/uL (1.0-5.5); LYMPHOCYTES % (AUTO) 16.1 % (20.5-51.5); MEAN CORPUSCULAR HEMOGLOBIN 28 pg (27-31); MEAN CORPUSCULAR HGB CONC 34 % (32-36); MEAN CORPUSCULAR VOLUME 82 fL (79.0-98.0); MONOCYTES # (AUTO) 0.4 K/uL (0.0-1.0); MONOCYTES % (AUTO) 8.6 % (1.7-9.3); NEUTROPHILS # (AUTO) 3.1 K/uL (1.8-7.7); NEUTROPHILS % (AUTO) 72.9 % (40.0-70.0); PLATELET COUNT (AUTO) 311 K/uL (130-430); RED BLOOD CELL COUNT(AUTO) 4.51 MIL/uL (4.2-6.2); RED CELL DISTRIBUTION WIDTH 14.7 % (9.0-15.0); WHITE BLOOD COUNT (AUTO) 4.2 K/uL (4.8-10.8)
[2019-03-02] MEDS ORDERED: NS IRRIG SOLN 1000 ML IR ONE (09:50)
[2019-03-02] MEDS ORDERED: WATER FOR IRRIGATION,STERILE 1,000 ML IRRIG.SOLN IR ONE (09:50)
[2019-03-02] MEDS ORDERED: SEVOFLURANE 15 MIN GAS INH ONE (09:50)
[2019-03-02] MEDS ORDERED: IOPAMIDOL 50 ML VIAL IV ONE (09:50)
[2019-03-02] MEDS ORDERED: ROCURONIUM BROMIDE 10 MG/ML (ZEMURON) IV ONE (09:50)
[2019-03-02] MEDS ORDERED: NS 1000 ML IV.SOLN IV ONE (09:50)
[2019-03-02] MEDS ORDERED: MIDAZOLAM HCL 5 MG/5 ML VIAL IVP ONE (09:50)
[2019-03-02 09:52] LABS: CALCIUM 9.5 mg/dL (8.4-11.0); CREATININE 0.41 mg/dL (0.55-1.30); POTASSIUM 4.6 mmol/L (3.5-5.1)
[2019-03-02 10:06] LABS: ALBUMIN 3.2 g/dL (3.4-4.8); TOTAL BILIRUBIN 0.2 mg/dL (0.0-1.0)
[2019-03-02] MEDS ORDERED: cefTRIAXone 1 GM IVPB PREMIX 50 ML IV ONE (10:30)
[2019-03-02] MEDS ORDERED: VITD2000 GT (10:31)
[2019-03-02] MEDS ORDERED: LORazepam 2 MG/ML VIAL IVP ONE (10:45)
[2019-03-02 10:46] LABS: BILIRUBIN,URINE NEGATIVE (NEGATIVE); CLARITY/URINE CLEAR (CLEAR); COLOR,URINE YELLOW (YELLOW); GLUCOSE,URINE NEGATIVE (NEGATIVE); KETONES,URINE NEGATIVE (NEGATIVE); LEUKOCYTE ESTERASE ,URINE NEGATIVE (NEGATIVE); NITRITE, URINE NEGATIVE (NEGATIVE); PH,URINE 7.5 (5.0-8.0); PROTEIN URINE NEGATIVE (NEGATIVE); UROBILINOGEN,URINE 0.2 (0.2-1.0)
[2019-03-02 10:47] LABS: BLOOD, URINE TRACE (NEGATIVE)
[2019-03-02 10:58] LABS: BACTERIA,URINE FEW /HPF (None Seen); WBC,URINE 0-3 /HPF (0-3)
[2019-03-02 10:59] LABS: URINE AMORPHOUS URATE 1+ /HPF (None Seen)
[2019-03-02] MEDS ORDERED: DILTIAZEM HCL 25 MG/5 ML VIAL IVP ONE (11:15)
[2019-03-02] MEDS ORDERED: MINERAL OIL 133 ML ENEMA RC PRN (12:15)
[2019-03-02] MEDS ORDERED: DIPHENOXYLATE HCL/ATROP SULF 2.5 MG TAB GT PRN (12:15)
[2019-03-02] MEDS ORDERED: CIPROFLOXACIN HCL 0.3% EYE DRP 2.5 ML DROPS OT PRN (12:15)
[2019-03-02] MEDS ORDERED: guaiFENesin/DEXTROMETHORPHAN 118 ML GT PRN (12:15)
[2019-03-02] MEDS ORDERED: ONDANSETRON 4 MG ODT TAB GT PRN (12:15)
[2019-03-02] MEDS ORDERED: ACETAMINOPHEN 500 MG TABLET PO PRN (12:15)
[2019-03-02] MEDS ORDERED: IBUPROFEN 600 MG TABLET GT PRN (12:15)
[2019-03-02] MEDS ORDERED: ALBUTEROL SULFATE 0.083% 2.5 MG/3 ML VIAL.NEB INH PRN ×2 (12:15→18:15)
[2019-03-02] MEDS: D5NS 1,000 ML IV SCH (12:44)
[2019-03-02] MEDS ORDERED: guaiFENesin/DEXTROMETHORPHAN 10 ML UDC GT PRN (13:18)
[2019-03-02] MEDS ORDERED: DEXAMETHASONE SOD PHOS 0.1% EYE OR EAR DROPS OT PRN (14:15)
[2019-03-02] MEDS ORDERED: SODIUM CHLORIDE 500 MG TABLET PO ONE (15:15)
[2019-03-02] MEDS ORDERED: METOPROLOL TARTRATE 50 MG TABLET PO ONE (16:15)
[2019-03-02] MEDS ORDERED: methylPREDNISolone SOD SUCC/PF 62.5 MG/ML VIAL IVP ONE (16:45)
[2019-03-02] MEDS ORDERED: METOPROLOL TARTRATE 25 MG TABLET GT SCH ×2 (18:00)
[2019-03-02] MEDS ORDERED: IPRATROPIUM BROM 0.5 MG/2.5 ML VIAL.NEB (ATROVENT) INH PRN (18:15)
[2019-03-02] MEDS ORDERED: MIDAZOLAM HCL 5 MG/5 ML VIAL ONE (18:25)
[2019-03-02] MEDS ORDERED: PROPOFOL DRIP 100 ML IV ONE (20:14)
[2019-03-02] MEDS: ALBUTEROL SULFATE 0.083% 2.5 MG/3 ML VIAL.NEB INH SCH (20:15)
[2019-03-02] MEDS: IPRATROPIUM BROM 0.5 MG/2.5 ML VIAL.NEB (ATROVENT) INH SCH (20:15)
[2019-03-02] MEDS: SODIUM CHLORIDE 500 MG TABLET PO SCH (20:20)
[2019-03-02] MEDS: levETIRAcetam 500 MG TABLET GT SCH (20:20)
[2019-03-02] MEDS: CALCIUM CARBONATE/VITAMIN D3 1 TAB TABLET GT SCH (20:20)
[2019-03-02] MEDS: PROPOFOL DRIP 100 ML IV PRN (20:23)
[2019-03-02] MEDS: methylPREDNISolone SOD SUCC/PF 62.5 MG/ML VIAL IVP SCH (23:06)
[2019-03-02] MEDS: PIPERACILLIN/TAZO 3.375/DEX-IS 50 ML IV SCH (23:07)
[2019-03-03] VITALS (31 sets, daily range): BP systolic 92–156
[2019-03-03] MEDS: IPRATROPIUM BROM 0.5 MG/2.5 ML VIAL.NEB (ATROVENT) INH SCH ×3 (00:50→19:56)
[2019-03-03] MEDS: ALBUTEROL SULFATE 0.083% 2.5 MG/3 ML VIAL.NEB INH SCH ×3 (00:50→19:55)
[2019-03-03] MEDS: D5NS 1,000 ML IV SCH ×2 (01:57→09:04)
[2019-03-03] MEDS: PIPERACILLIN/TAZO 3.375/DEX-IS 50 ML IV SCH ×4 (05:14→23:00)
[2019-03-03 05:34] LABS: BASOPHILS % (AUTO) 0.1 % (0.0-2.0); EOSINOPHILS % (AUTO) 0.1 % (0.0-4.0); HEMOGLOBIN 11.1 g/dL (12.0-16.0); LYMPHOCYTES # (AUTO) 0.3 K/uL (1.0-5.5); LYMPHOCYTES % (AUTO) 6.4 % (20.5-51.5); MEAN CORPUSCULAR HEMOGLOBIN 28 pg (27-31); MEAN CORPUSCULAR HGB CONC 35 % (32-36); MEAN CORPUSCULAR VOLUME 81 fL (79.0-98.0); MONOCYTES # (AUTO) 0.1 K/uL (0.0-1.0); NEUTROPHILS # (AUTO) 4.3 K/uL (1.8-7.7); NEUTROPHILS % (AUTO) 91.4 % (40.0-70.0); PLATELET COUNT (AUTO) 260 K/uL (130-430); RED BLOOD CELL COUNT(AUTO) 3.97 MIL/uL (4.2-6.2); RED CELL DISTRIBUTION WIDTH 14.5 % (9.0-15.0); WHITE BLOOD COUNT (AUTO) 4.7 K/uL (4.8-10.8)
[2019-03-03 05:50] LABS: ALBUMIN 2.7 g/dL (3.4-4.8); CALCIUM 8.8 mg/dL (8.4-11.0); CREATININE 0.61 mg/dL (0.55-1.30); POTASSIUM 4.4 mmol/L (3.5-5.1); TOTAL BILIRUBIN 0.3 mg/dL (0.0-1.0)
[2019-03-03] MEDS: methylPREDNISolone SOD SUCC/PF 62.5 MG/ML VIAL IVP SCH ×3 (06:31→21:05)
[2019-03-03] MEDS: LEVOTHYROXINE SODIUM 0.05 MG TABLET GT SCH (06:31)
[2019-03-03] MEDS: LANSOPRAZOLE 30 MG CAPSULE.DR GT SCH (06:32)
[2019-03-03] MEDS ORDERED: ALBUTEROL SULFATE 0.083% 2.5 MG/3 ML VIAL.NEB INH SCH (09:00)
[2019-03-03] MEDS ORDERED: cefTRIAXone 1 GM in D5W 50 ML IV SCH (09:00)
[2019-03-03] MEDS: POLYETHYLENE GLYCOL 3350, 17 GM/ POWD.PACK GT SCH (09:04)
[2019-03-03] MEDS: SODIUM CHLORIDE 500 MG TABLET PO SCH ×3 (09:05→21:07)
[2019-03-03] MEDS: levETIRAcetam 500 MG TABLET GT SCH ×2 (09:06→21:07)
[2019-03-03] MEDS: MULTIVITS,CA,MINERALS/IRON/FA 1 TABLET GT SCH (09:06)
[2019-03-03] MEDS: METOPROLOL TARTRATE 50 MG TABLET PO SCH ×2 (09:06→21:06)
[2019-03-03] MEDS: LISINOPRIL 10 MG TABLET (PRINIVIL) GT SCH (09:06)
[2019-03-03] MEDS: CHOLECALCIFEROL (VITAMIN D3) 2,000 UNIT TABLET GT SCH (09:07)
[2019-03-03] MEDS: MONTELUKAST 10 MG TABLET GT SCH (09:07)
[2019-03-03] MEDS: ENOXAPARIN SODIUM 40 MG/0.4 ML SYRINGE SUBCUT SCH (09:08)
[2019-03-03] MEDS: CALCIUM CARBONATE/VITAMIN D3 1 TAB TABLET GT SCH ×2 (09:21→21:07)
[2019-03-03] MEDS: NACL 0.9% 1,000 ML IV SCH (12:00)
[2019-03-03] MEDS ORDERED: MORPHINE 2 MG/ML INJ. SYRINGE IVP PRN (12:15)
[2019-03-03] MEDS ORDERED: VANCOMYCIN HCL 1 GM/NS PREMIX 250 ML IV ONE (12:30)
[2019-03-03] MEDS ORDERED: ETOMIDATE 20 MG/ 10 ML VIAL (AMIDATE) IVP ONE (13:30)
[2019-03-03] MEDS ORDERED: SUCCINYLCHOLINE CHLORIDE 20 MG/ML(QUELICIN) IVP ONE (13:30)
[2019-03-03 14:04] LABS: URINE SODIUM, RANDOM 187 mmol/L (40-220)
[2019-03-03] MEDS: PROPOFOL DRIP 100 ML IV PRN (17:36)
[2019-03-04] VITALS (35 sets, daily range): BP systolic 104–162
[2019-03-04] MEDS: ALBUTEROL SULFATE 0.083% 2.5 MG/3 ML VIAL.NEB INH SCH ×4 (01:51→20:00)
[2019-03-04] MEDS: IPRATROPIUM BROM 0.5 MG/2.5 ML VIAL.NEB (ATROVENT) INH SCH ×4 (01:51→20:00)
[2019-03-04] MEDS: methylPREDNISolone SOD SUCC/PF 62.5 MG/ML VIAL IVP SCH ×3 (05:26→21:04)
[2019-03-04] MEDS: NACL 0.9% 1,000 ML IV SCH ×2 (05:27→23:30)
[2019-03-04] MEDS: PIPERACILLIN/TAZO 3.375/DEX-IS 50 ML IV SCH ×4 (05:27→23:29)
[2019-03-04] MEDS: PROPOFOL DRIP 100 ML IV PRN ×3 (05:57→23:32)
[2019-03-04] MEDS: LANSOPRAZOLE 30 MG CAPSULE.DR GT SCH (06:03)
[2019-03-04] MEDS: LEVOTHYROXINE SODIUM 0.05 MG TABLET GT SCH (06:04)
[2019-03-04 06:50] LABS: BASOPHILS % (AUTO) 0.1 % (0.0-2.0); HEMATOCRIT 31.5 % (36-48); HEMOGLOBIN 10.9 g/dL (12.0-16.0); LYMPHOCYTES # (AUTO) 0.7 K/uL (1.0-5.5); LYMPHOCYTES % (AUTO) 10.5 % (20.5-51.5); MEAN CORPUSCULAR HEMOGLOBIN 28 pg (27-31); MEAN CORPUSCULAR HGB CONC 35 % (32-36); MEAN CORPUSCULAR VOLUME 81 fL (79.0-98.0); MONOCYTES # (AUTO) 0.4 K/uL (0.0-1.0); MONOCYTES % (AUTO) 5.6 % (1.7-9.3); NEUTROPHILS # (AUTO) 5.4 K/uL (1.8-7.7); NEUTROPHILS % (AUTO) 83.8 % (40.0-70.0); PLATELET COUNT (AUTO) 244 K/uL (130-430); RED BLOOD CELL COUNT(AUTO) 3.89 MIL/uL (4.2-6.2); RED CELL DISTRIBUTION WIDTH 14.5 % (9.0-15.0); WHITE BLOOD COUNT (AUTO) 6.5 K/uL (4.8-10.8)
[2019-03-04 06:58] LABS: CALCIUM 8.5 mg/dL (8.4-11.0); CHLORIDE 93 mmol/L (98-107); CREATININE 0.48 mg/dL (0.55-1.30); GLUCOSE 120 mg/dL (70-99); POTASSIUM 3.8 mmol/L (3.5-5.1); SODIUM SERUM 125 mmol/L (136-145); UREA NITROGEN, BLOOD 13 mg/dL (8-21)
[2019-03-04 07:00] LABS: ANION GAP < 3 (5-15); GFR AFRICAN AMERICAN 164 mL/min (>90)
[2019-03-04] MEDS: POLYETHYLENE GLYCOL 3350, 17 GM/ POWD.PACK GT SCH (09:20)
[2019-03-04] MEDS: MONTELUKAST 10 MG TABLET GT SCH (09:21)
[2019-03-04] MEDS: LISINOPRIL 10 MG TABLET (PRINIVIL) GT SCH (09:21)
[2019-03-04] MEDS: MULTIVITS,CA,MINERALS/IRON/FA 1 TABLET GT SCH (09:21)
[2019-03-04] MEDS: CALCIUM CARBONATE/VITAMIN D3 1 TAB TABLET GT SCH ×2 (09:21→21:04)
[2019-03-04] MEDS: CHOLECALCIFEROL (VITAMIN D3) 2,000 UNIT TABLET GT SCH (09:22)
[2019-03-04] MEDS: levETIRAcetam 500 MG TABLET GT SCH ×2 (09:22→21:04)
[2019-03-04] MEDS: METOPROLOL TARTRATE 50 MG TABLET PO SCH ×2 (09:22→21:04)
[2019-03-04] MEDS: SODIUM CHLORIDE 500 MG TABLET PO SCH ×3 (09:23→21:04)
[2019-03-04] MEDS: ENOXAPARIN SODIUM 40 MG/0.4 ML SYRINGE SUBCUT SCH (11:13)
[2019-03-04 12:41] LABS: INR 1.1 (0.8-1.2); PROTHROMBIN TIME 10.8 SECS (9.5-12.5)
[2019-03-05] VITALS (36 sets, daily range): BP systolic 98–170
[2019-03-05] MEDS: ALBUTEROL SULFATE 0.083% 2.5 MG/3 ML VIAL.NEB INH SCH ×4 (01:33→19:55)
[2019-03-05] MEDS: IPRATROPIUM BROM 0.5 MG/2.5 ML VIAL.NEB (ATROVENT) INH SCH ×4 (01:33→19:55)
[2019-03-05] MEDS: PIPERACILLIN/TAZO 3.375/DEX-IS 50 ML IV SCH ×4 (05:36→23:54)
[2019-03-05] MEDS: methylPREDNISolone SOD SUCC/PF 62.5 MG/ML VIAL IVP SCH ×3 (05:36→21:06)
[2019-03-05 06:25] LABS: BASOPHILS % (AUTO) 0.1 % (0.0-2.0); EOSINOPHILS % (AUTO) 0.1 % (0.0-4.0); HEMATOCRIT 31.7 % (36-48); HEMOGLOBIN 11.1 g/dL (12.0-16.0); LYMPHOCYTES # (AUTO) 0.6 K/uL (1.0-5.5); LYMPHOCYTES % (AUTO) 10.9 % (20.5-51.5); MEAN CORPUSCULAR HEMOGLOBIN 29 pg (27-31); MEAN CORPUSCULAR HGB CONC 35 % (32-36); MEAN CORPUSCULAR VOLUME 82 fL (79.0-98.0); MONOCYTES # (AUTO) 0.2 K/uL (0.0-1.0); MONOCYTES % (AUTO) 3.5 % (1.7-9.3); NEUTROPHILS % (AUTO) 85.4 % (40.0-70.0); PLATELET COUNT (AUTO) 242 K/uL (130-430); RED BLOOD CELL COUNT(AUTO) 3.89 MIL/uL (4.2-6.2); RED CELL DISTRIBUTION WIDTH 14.9 % (9.0-15.0); WHITE BLOOD COUNT (AUTO) 5.8 K/uL (4.8-10.8)
[2019-03-05] MEDS: LEVOTHYROXINE SODIUM 0.05 MG TABLET GT SCH (06:27)
[2019-03-05] MEDS: LANSOPRAZOLE 30 MG CAPSULE.DR GT SCH (06:27)
[2019-03-05 08:02] LABS: POTASSIUM 3.5 mmol/L (3.5-5.1)
[2019-03-05 08:03] LABS: CALCIUM 8.5 mg/dL (8.4-11.0); CREATININE 0.5 mg/dL (0.55-1.30)
[2019-03-05] MEDS: POLYETHYLENE GLYCOL 3350, 17 GM/ POWD.PACK GT SCH (09:10)
[2019-03-05] MEDS: ENOXAPARIN SODIUM 40 MG/0.4 ML SYRINGE SUBCUT SCH (09:10)
[2019-03-05] MEDS: LISINOPRIL 10 MG TABLET (PRINIVIL) GT SCH (09:11)
[2019-03-05] MEDS: CALCIUM CARBONATE/VITAMIN D3 1 TAB TABLET GT SCH ×2 (09:11→21:06)
[2019-03-05] MEDS: SODIUM CHLORIDE 500 MG TABLET PO SCH ×3 (09:12→21:06)
[2019-03-05] MEDS: MULTIVITS,CA,MINERALS/IRON/FA 1 TABLET GT SCH (09:12)
[2019-03-05] MEDS: MONTELUKAST 10 MG TABLET GT SCH (09:12)
[2019-03-05] MEDS: METOPROLOL TARTRATE 50 MG TABLET PO SCH ×2 (09:12→21:06)
[2019-03-05] MEDS: levETIRAcetam 500 MG TABLET GT SCH ×2 (09:12→21:06)
[2019-03-05] MEDS: CHOLECALCIFEROL (VITAMIN D3) 2,000 UNIT TABLET GT SCH (09:14)
[2019-03-05] MEDS: PROPOFOL DRIP 100 ML IV PRN (10:39)
[2019-03-05] MEDS: LORazepam 2 MG/ML VIAL IVP PRN ×2 (12:10→21:05)
[2019-03-05] MEDS: NACL 0.9% 1,000 ML IV SCH (15:16)
[2019-03-05] MEDS ORDERED: VANCOMYCIN HCL 1 GM/NS PREMIX 250 ML IV ONE (19:00)
[2019-03-05] MEDS ORDERED: VANCOMYCIN HCL 1000 MG/VIAL IV ONE (19:03)
[2019-03-06] VITALS (35 sets, daily range): BP systolic 105–154
[2019-03-06] MEDS: LORazepam 2 MG/ML VIAL IVP PRN ×2 (00:35→20:55)
[2019-03-06] MEDS: IPRATROPIUM BROM 0.5 MG/2.5 ML VIAL.NEB (ATROVENT) INH SCH ×4 (00:43→19:40)
[2019-03-06] MEDS: ALBUTEROL SULFATE 0.083% 2.5 MG/3 ML VIAL.NEB INH SCH ×4 (00:43→19:39)
[2019-03-06] MEDS: methylPREDNISolone SOD SUCC/PF 62.5 MG/ML VIAL IVP SCH ×3 (05:38→20:56)
[2019-03-06] MEDS: PIPERACILLIN/TAZO 3.375/DEX-IS 50 ML IV SCH ×4 (05:38→23:06)
[2019-03-06] MEDS: LANSOPRAZOLE 30 MG CAPSULE.DR GT SCH (06:02)
[2019-03-06] MEDS: LEVOTHYROXINE SODIUM 0.05 MG TABLET GT SCH (06:02)
[2019-03-06 06:19] LABS: BASOPHILS % (AUTO) 0.3 % (0.0-2.0); HEMATOCRIT 29.9 % (36-48); HEMOGLOBIN 10.3 g/dL (12.0-16.0); LYMPHOCYTES # (AUTO) 0.7 K/uL (1.0-5.5); LYMPHOCYTES % (AUTO) 8.8 % (20.5-51.5); MEAN CORPUSCULAR HEMOGLOBIN 28 pg (27-31); MEAN CORPUSCULAR HGB CONC 35 % (32-36); MEAN CORPUSCULAR VOLUME 82 fL (79.0-98.0); MONOCYTES # (AUTO) 0.6 K/uL (0.0-1.0); MONOCYTES % (AUTO) 6.9 % (1.7-9.3); NEUTROPHILS # (AUTO) 7.1 K/uL (1.8-7.7); PLATELET COUNT (AUTO) 235 K/uL (130-430); RED BLOOD CELL COUNT(AUTO) 3.63 MIL/uL (4.2-6.2); RED CELL DISTRIBUTION WIDTH 15.2 % (9.0-15.0); WHITE BLOOD COUNT (AUTO) 8.4 K/uL (4.8-10.8)
[2019-03-06 06:25] LABS: CALCIUM 8.2 mg/dL (8.4-11.0); POTASSIUM 3.3 mmol/L (3.5-5.1)
[2019-03-06 06:26] LABS: CREATININE 0.45 mg/dL (0.55-1.30)
[2019-03-06] MEDS: CHOLECALCIFEROL (VITAMIN D3) 2,000 UNIT TABLET GT SCH (10:04)
[2019-03-06] MEDS: MULTIVITS,CA,MINERALS/IRON/FA 1 TABLET GT SCH (10:04)
[2019-03-06] MEDS: POLYETHYLENE GLYCOL 3350, 17 GM/ POWD.PACK GT SCH (10:04)
[2019-03-06] MEDS: LISINOPRIL 10 MG TABLET (PRINIVIL) GT SCH (10:04)
[2019-03-06] MEDS: SODIUM CHLORIDE 500 MG TABLET PO SCH ×3 (10:04→20:55)
[2019-03-06] MEDS: METOPROLOL TARTRATE 50 MG TABLET PO SCH ×2 (10:05→20:56)
[2019-03-06] MEDS: levETIRAcetam 500 MG TABLET GT SCH ×2 (10:05→20:55)
[2019-03-06] MEDS: CALCIUM CARBONATE/VITAMIN D3 1 TAB TABLET GT SCH ×2 (10:05→20:56)
[2019-03-06] MEDS: MONTELUKAST 10 MG TABLET GT SCH (10:05)
[2019-03-06] MEDS: ENOXAPARIN SODIUM 40 MG/0.4 ML SYRINGE SUBCUT SCH (10:07)
[2019-03-06] MEDS ORDERED: POTASSIUM CHLORIDE 20 MEQ/PKT PACKET PO ONE (11:15)
[2019-03-06] MEDS: NACL 0.9% 1,000 ML IV SCH (15:13)
[2019-03-06] MEDS: VANCOMYCIN HCL 1,000 MG in NS 250 ML IV SCH (17:24)
[2019-03-07] VITALS (32 sets, daily range): BP systolic 112–151
[2019-03-07] MEDS: IPRATROPIUM BROM 0.5 MG/2.5 ML VIAL.NEB (ATROVENT) INH SCH ×4 (01:02→19:30)
[2019-03-07] MEDS: ALBUTEROL SULFATE 0.083% 2.5 MG/3 ML VIAL.NEB INH SCH ×4 (01:02→19:30)
[2019-03-07] MEDS: LORazepam 2 MG/ML VIAL IVP PRN ×4 (02:42→21:18)
[2019-03-07] MEDS: PIPERACILLIN/TAZO 3.375/DEX-IS 50 ML IV SCH ×4 (05:21→23:14)
[2019-03-07] MEDS: methylPREDNISolone SOD SUCC/PF 62.5 MG/ML VIAL IVP SCH ×2 (05:21→18:18)
[2019-03-07] MEDS: LEVOTHYROXINE SODIUM 0.05 MG TABLET GT SCH (06:02)
[2019-03-07] MEDS: LANSOPRAZOLE 30 MG CAPSULE.DR GT SCH (06:02)
[2019-03-07 06:11] LABS: CALCIUM 8.5 mg/dL (8.4-11.0); CREATININE 0.43 mg/dL (0.55-1.30); POTASSIUM 3.8 mmol/L (3.5-5.1)
[2019-03-07] MEDS: CHOLECALCIFEROL (VITAMIN D3) 2,000 UNIT TABLET GT SCH (09:27)
[2019-03-07] MEDS: MONTELUKAST 10 MG TABLET GT SCH (09:28)
[2019-03-07] MEDS: MULTIVITS,CA,MINERALS/IRON/FA 1 TABLET GT SCH (09:28)
[2019-03-07] MEDS: SODIUM CHLORIDE 500 MG TABLET PO SCH ×3 (09:28→21:18)
[2019-03-07] MEDS: CALCIUM CARBONATE/VITAMIN D3 1 TAB TABLET GT SCH ×2 (09:28→21:19)
[2019-03-07] MEDS: POLYETHYLENE GLYCOL 3350, 17 GM/ POWD.PACK GT SCH (09:29)
[2019-03-07] MEDS: LISINOPRIL 10 MG TABLET (PRINIVIL) GT SCH (09:29)
[2019-03-07] MEDS: ENOXAPARIN SODIUM 40 MG/0.4 ML SYRINGE SUBCUT SCH (09:30)
[2019-03-07] MEDS: levETIRAcetam 500 MG TABLET GT SCH ×2 (09:32→21:18)
[2019-03-07] MEDS: METOPROLOL TARTRATE 50 MG TABLET PO SCH ×2 (09:33→21:18)
[2019-03-07] MEDS: NACL 0.9% 1,000 ML IV SCH (14:15)
[2019-03-07] MEDS: VANCOMYCIN HCL 1,000 MG in NS 250 ML IV SCH (18:16)
[2019-03-07] MEDS ORDERED: FUROSEMIDE 20 MG/2 ML VIAL IVP ONE (21:00)
[2019-03-08] VITALS (29 sets, daily range): BP systolic 100–149
[2019-03-08] MEDS: ALBUTEROL SULFATE 0.083% 2.5 MG/3 ML VIAL.NEB INH SCH ×3 (01:01→19:36)
[2019-03-08] MEDS: IPRATROPIUM BROM 0.5 MG/2.5 ML VIAL.NEB (ATROVENT) INH SCH ×3 (01:01→19:36)
[2019-03-08] MEDS: MENTHOL/ZINC OXIDE 113 GM OINT. TP PRN ×2 (02:46→23:03)
[2019-03-08] MEDS: PIPERACILLIN/TAZO 3.375/DEX-IS 50 ML IV SCH ×4 (05:20→23:03)
[2019-03-08 05:55] LABS: BASOPHILS % (AUTO) 0.1 % (0.0-2.0); EOSINOPHILS % (AUTO) 0.4 % (0.0-4.0); HEMATOCRIT 31.3 % (36-48); HEMOGLOBIN 10.7 g/dL (12.0-16.0); LYMPHOCYTES # (AUTO) 1.2 K/uL (1.0-5.5); LYMPHOCYTES % (AUTO) 15.8 % (20.5-51.5); MEAN CORPUSCULAR HEMOGLOBIN 28 pg (27-31); MEAN CORPUSCULAR HGB CONC 34 % (32-36); MEAN CORPUSCULAR VOLUME 83 fL (79.0-98.0); MONOCYTES # (AUTO) 0.5 K/uL (0.0-1.0); MONOCYTES % (AUTO) 7.1 % (1.7-9.3); NEUTROPHILS # (AUTO) 5.8 K/uL (1.8-7.7); NEUTROPHILS % (AUTO) 76.6 % (40.0-70.0); PLATELET COUNT (AUTO) 245 K/uL (130-430); RED BLOOD CELL COUNT(AUTO) 3.79 MIL/uL (4.2-6.2); RED CELL DISTRIBUTION WIDTH 14.9 % (9.0-15.0); WHITE BLOOD COUNT (AUTO) 7.6 K/uL (4.8-10.8)
[2019-03-08] MEDS: LEVOTHYROXINE SODIUM 0.05 MG TABLET GT SCH (06:05)
[2019-03-08] MEDS: methylPREDNISolone SOD SUCC/PF 62.5 MG/ML VIAL IVP SCH ×2 (06:05→17:54)
[2019-03-08] MEDS: LANSOPRAZOLE 30 MG CAPSULE.DR GT SCH (06:06)
[2019-03-08 06:16] LABS: CALCIUM 8.6 mg/dL (8.4-11.0); CREATININE 0.57 mg/dL (0.55-1.30); POTASSIUM 3.3 mmol/L (3.5-5.1)
[2019-03-08] MEDS ORDERED: IOHEXOL 50 ML IV ONE (08:28)
[2019-03-08] MEDS: ENOXAPARIN SODIUM 40 MG/0.4 ML SYRINGE SUBCUT SCH (09:00)
[2019-03-08] MEDS ORDERED: LR 1,000 ML IV SCH (10:45)
[2019-03-08] MEDS: CHOLECALCIFEROL (VITAMIN D3) 2,000 UNIT TABLET GT SCH (11:22)
[2019-03-08] MEDS: LISINOPRIL 10 MG TABLET (PRINIVIL) GT SCH (11:22)
[2019-03-08] MEDS: levETIRAcetam 500 MG TABLET GT SCH ×2 (11:22→20:03)
[2019-03-08] MEDS: MULTIVITS,CA,MINERALS/IRON/FA 1 TABLET GT SCH (11:22)
[2019-03-08] MEDS: MONTELUKAST 10 MG TABLET GT SCH (11:23)
[2019-03-08] MEDS: METOPROLOL TARTRATE 50 MG TABLET PO SCH ×2 (11:23→20:02)
[2019-03-08] MEDS: POLYETHYLENE GLYCOL 3350, 17 GM/ POWD.PACK GT SCH (11:24)
[2019-03-08] MEDS: CALCIUM CARBONATE/VITAMIN D3 1 TAB TABLET GT SCH ×2 (11:43→20:03)
[2019-03-08] MEDS: SODIUM CHLORIDE 500 MG TABLET PO SCH ×3 (11:43→20:03)
[2019-03-08] MEDS ORDERED: POTASSIUM CHLORIDE 20 MEQ TAB.PRT.SR PO ONE (12:00)
[2019-03-08] MEDS ORDERED: DIPHENOXYLATE HCL/ATROP SULF 2.5 MG TAB GT PRN (18:00)
[2019-03-08] MEDS: VANCOMYCIN HCL 1,000 MG in NS 250 ML IV SCH (18:56)
[2019-03-09] VITALS (17 sets, daily range): BP systolic 103–127
[2019-03-09] MEDS: IPRATROPIUM BROM 0.5 MG/2.5 ML VIAL.NEB (ATROVENT) INH SCH ×4 (00:11→19:25)
[2019-03-09] MEDS: ALBUTEROL SULFATE 0.083% 2.5 MG/3 ML VIAL.NEB INH SCH ×4 (00:11→19:25)
[2019-03-09] MEDS: PIPERACILLIN/TAZO 3.375/DEX-IS 50 ML IV SCH ×3 (05:05→17:37)
[2019-03-09 05:50] LABS: BASOPHILS % (AUTO) 0.1 % (0.0-2.0); EOSINOPHILS % (AUTO) 0.6 % (0.0-4.0); HEMATOCRIT 31.3 % (36-48); HEMOGLOBIN 10.2 g/dL (12.0-16.0); LYMPHOCYTES # (AUTO) 0.7 K/uL (1.0-5.5); LYMPHOCYTES % (AUTO) 10.2 % (20.5-51.5); MEAN CORPUSCULAR HEMOGLOBIN 27 pg (27-31); MEAN CORPUSCULAR HGB CONC 33 % (32-36); MEAN CORPUSCULAR VOLUME 84 fL (79.0-98.0); MONOCYTES # (AUTO) 0.5 K/uL (0.0-1.0); MONOCYTES % (AUTO) 7.2 % (1.7-9.3); NEUTROPHILS # (AUTO) 5.6 K/uL (1.8-7.7); NEUTROPHILS % (AUTO) 81.9 % (40.0-70.0); PLATELET COUNT (AUTO) 261 K/uL (130-430); RED BLOOD CELL COUNT(AUTO) 3.74 MIL/uL (4.2-6.2); RED CELL DISTRIBUTION WIDTH 15.2 % (9.0-15.0); WHITE BLOOD COUNT (AUTO) 6.9 K/uL (4.8-10.8)
[2019-03-09] MEDS: LANSOPRAZOLE 30 MG CAPSULE.DR GT SCH (06:03)
[2019-03-09] MEDS: methylPREDNISolone SOD SUCC/PF 62.5 MG/ML VIAL IVP SCH ×2 (06:03→19:00)
[2019-03-09] MEDS: LEVOTHYROXINE SODIUM 0.05 MG TABLET GT SCH (06:03)
[2019-03-09 06:04] LABS: CREATININE 0.4 mg/dL (0.55-1.30); POTASSIUM 3.9 mmol/L (3.5-5.1)
[2019-03-09 07:37] LABS: ALBUMIN 2.5 g/dL (3.4-4.8); BILIRUBIN,DIRECT 0.1 mg/dL (0.0-0.3); TOTAL BILIRUBIN 0.4 mg/dL (0.0-1.0)
[2019-03-09] MEDS: SODIUM CHLORIDE 500 MG TABLET PO SCH ×3 (08:18→22:05)
[2019-03-09] MEDS: LISINOPRIL 10 MG TABLET (PRINIVIL) GT SCH (08:18)
[2019-03-09] MEDS: MONTELUKAST 10 MG TABLET GT SCH (08:18)
[2019-03-09] MEDS: CHOLECALCIFEROL (VITAMIN D3) 2,000 UNIT TABLET GT SCH (08:19)
[2019-03-09] MEDS: METOPROLOL TARTRATE 50 MG TABLET PO SCH ×2 (08:19→22:06)
[2019-03-09] MEDS: MULTIVITS,CA,MINERALS/IRON/FA 1 TABLET GT SCH (08:19)
[2019-03-09] MEDS: CALCIUM CARBONATE/VITAMIN D3 1 TAB TABLET GT SCH ×2 (08:19→22:05)
[2019-03-09] MEDS: levETIRAcetam 500 MG TABLET GT SCH ×2 (08:19→22:06)
[2019-03-09] MEDS: ENOXAPARIN SODIUM 40 MG/0.4 ML SYRINGE SUBCUT SCH (08:21)
[2019-03-09] MEDS: NACL 0.9% 1,000 ML IV SCH (11:40)
[2019-03-09] MEDS: VANCOMYCIN HCL 1,000 MG in NS 250 ML IV SCH (18:38)
[2019-03-10] MEDS: IPRATROPIUM BROM 0.5 MG/2.5 ML VIAL.NEB (ATROVENT) INH SCH (00:45)
[2019-03-10] MEDS: ALBUTEROL SULFATE 0.083% 2.5 MG/3 ML VIAL.NEB INH SCH (00:46)
[2019-03-10] MEDS ORDERED: PIPERACILLIN/TAZOBACTAM 3.375 GM/VIAL (ZOSYN) IV ONE (01:17)
[2019-03-10 01:20] VITALS: BP_SYST 128
[2019-03-10] MEDS: PIPERACILLIN/TAZO 3.375/DEX-IS 50 ML IV SCH (01:51)
[2019-03-10] MEDS: MULTIVITS,CA,MINERALS/IRON/FA 1 TABLET GT SCH (09:00)
[2019-03-10] MEDS: CHOLECALCIFEROL (VITAMIN D3) 2,000 UNIT TABLET GT SCH (09:00)
[2019-03-10] MEDS: LISINOPRIL 10 MG TABLET (PRINIVIL) GT SCH (09:00)
[2019-03-10] MEDS: ENOXAPARIN SODIUM 40 MG/0.4 ML SYRINGE SUBCUT SCH (09:00)
[2019-03-10] MEDS: MONTELUKAST 10 MG TABLET GT SCH (09:00)
[2019-03-10] MEDS: NACL 0.9% 1,000 ML IV SCH (10:30)
[2019-03-11] MEDS: CHOLECALCIFEROL (VITAMIN D3) 2,000 UNIT TABLET GT SCH (09:00)
[2019-03-11] MEDS: MONTELUKAST 10 MG TABLET GT SCH (09:00)
[2019-03-11] MEDS: ENOXAPARIN SODIUM 40 MG/0.4 ML SYRINGE SUBCUT SCH (09:00)
[2019-03-11] MEDS: MULTIVITS,CA,MINERALS/IRON/FA 1 TABLET GT SCH (09:00)
[2019-03-11] MEDS: LISINOPRIL 10 MG TABLET (PRINIVIL) GT SCH (09:00)
[2019-03-11] MEDS: NACL 0.9% 1,000 ML IV SCH (10:30)
[2019-03-11] MEDS: methylPREDNISolone SOD SUCC 40 MG/ML VIAL IVP SCH (14:00)
[2019-03-11 19:50] VITALS: BP_SYST 135
[2019-03-11] MEDS: levETIRAcetam 500 MG TABLET GT SCH (23:09)
[2019-03-11] MEDS: CALCIUM CARBONATE/VITAMIN D3 1 TAB TABLET GT SCH (23:09)
[2019-03-11] MEDS: SODIUM CHLORIDE 500 MG TABLET PO SCH (23:10)
[2019-03-11] MEDS: METOPROLOL TARTRATE 50 MG TABLET PO SCH (23:10)
[2019-03-12 01:36] VITALS: BP_SYST 122
[2019-03-12] MEDS: ALBUTEROL SULFATE 0.083% 2.5 MG/3 ML VIAL.NEB INH SCH ×3 (02:00→13:56)
[2019-03-12] MEDS: IPRATROPIUM BROM 0.5 MG/2.5 ML VIAL.NEB (ATROVENT) INH SCH ×3 (02:01→13:56)
[2019-03-12] MEDS: NACL 0.9% 1,000 ML IV SCH ×2 (05:59→10:30)
[2019-03-12] MEDS: LEVOTHYROXINE SODIUM 0.05 MG TABLET GT SCH (06:29)
[2019-03-12] MEDS: LANSOPRAZOLE 30 MG CAPSULE.DR GT SCH (06:29)
[2019-03-12] MEDS: methylPREDNISolone SOD SUCC/PF 62.5 MG/ML VIAL IVP SCH (06:31)
[2019-03-12] MEDS: methylPREDNISolone SOD SUCC 40 MG/ML VIAL IVP SCH (10:27)
[2019-03-12] MEDS: METOPROLOL TARTRATE 50 MG TABLET PO SCH (10:28)
[2019-03-12] MEDS: MONTELUKAST 10 MG TABLET GT SCH (10:28)
[2019-03-12] MEDS: LISINOPRIL 10 MG TABLET (PRINIVIL) GT SCH (10:28)
[2019-03-12] MEDS: CALCIUM CARBONATE/VITAMIN D3 1 TAB TABLET GT SCH (10:28)
[2019-03-12] MEDS: levETIRAcetam 500 MG TABLET GT SCH (10:28)
[2019-03-12] MEDS: MULTIVITS,CA,MINERALS/IRON/FA 1 TABLET GT SCH (10:28)
[2019-03-12] MEDS: CHOLECALCIFEROL (VITAMIN D3) 2,000 UNIT TABLET GT SCH (10:29)
[2019-03-12] MEDS: SODIUM CHLORIDE 500 MG TABLET PO SCH (10:29)
[2019-03-12] MEDS: ENOXAPARIN SODIUM 40 MG/0.4 ML SYRINGE SUBCUT SCH (10:30)
[2019-03-12] MEDS ORDERED: VANCOMYCIN HCL 1,000 MG in NS 250 ML IV SCH (11:00)
[2019-03-12 12:00] VITALS: BP_SYST 112
[2019-03-12 17:11] VITALS: BP_SYST 135
[2019-03-12 17:38] VITALS: BP_SYST 135
[2019-03-13] MEDS ORDERED: methylPREDNISolone SOD SUCC/PF 62.5 MG/ML VIAL IVP SCH (07:00)
[2019-03-22 10:19] LABS: ALBUMIN 2.7 g/dL (3.4-4.8); BILIRUBIN,DIRECT 0.1 mg/dL (0.0-0.3); TOTAL BILIRUBIN 0.4 mg/dL (0.0-1.0)
== END 2019-03-12 18:30 | DRG 870 ==
LOC: SED 08:53 → SMU 11:39 → SIC 18:30 → STU 03-09 19:14
PROVIDERS: ADMIT Internal Medicine; ATTEND Internal Medicine
PROC: 5A1955Z Respiratory Ventilation, Greater than 96 Consecutive Hours (ICD-10-PCS; principal; 2019-03-02)
PROC: 0BH17EZ Insertion of Endotracheal Airway into Trachea, Via Natural or Artificial Opening (ICD-10-PCS; 2019-03-02)
PROC: 02HV33Z Insertion of Infusion Device into Superior Vena Cava, Percutaneous Approach (ICD-10-PCS; 2019-03-04)
PROC: B548ZZA Ultrasonography of Superior Vena Cava, Guidance (ICD-10-PCS; 2019-03-04)
PROC: 0FPB8DZ Removal of Intraluminal Device from Hepatobiliary Duct, Via Natural or Artificial Opening Endoscopic (ICD-10-PCS; 2019-03-08)
PROC: 0FC98ZZ Extirpation of Matter from Common Bile Duct, Via Natural or Artificial Opening Endoscopic (ICD-10-PCS; 2019-03-08)
PROC: 0FD98ZX Extraction of Common Bile Duct, Via Natural or Artificial Opening Endoscopic, Diagnostic (ICD-10-PCS; 2019-03-08)
DX: A41.9 Sepsis, unspecified organism (principal); J69.0 Pneumonitis due to inhalation of food and vomit; J96.20 Acute and chronic respiratory failure, unspecified whether with hypoxia or hypercapnia; J15.1 Pneumonia due to Pseudomonas; E87.1 Hypo-osmolality and hyponatremia; E46 Unspecified protein-calorie malnutrition; G93.40 Encephalopathy, unspecified; N39.0 Urinary tract infection, site not specified; F79 Unspecified intellectual disabilities; E78.5 Hyperlipidemia, unspecified; D64.9 Anemia, unspecified; E03.9 Hypothyroidism, unspecified; G40.909 Epilepsy, unspecified, not intractable, without status epilepticus; H26.9 Unspecified cataract; I10 Essential (primary) hypertension; J44.9 Chronic obstructive pulmonary disease, unspecified; K21.9 Gastro-esophageal reflux disease without esophagitis; M81.0 Age-related osteoporosis without current pathological fracture; F41.9 Anxiety disorder, unspecified; E78.00 Pure hypercholesterolemia, unspecified; E87.8 Other disorders of electrolyte and fluid balance, not elsewhere classified; R13.10 Dysphagia, unspecified; F03.90 Unspecified dementia, unspecified severity, without behavioral disturbance, psychotic disturbance, mood disturbance, and anxiety; A49.02 Methicillin resistant Staphylococcus aureus infection, unspecified site; Z91.5 Personal history of self-harm; Z93.1 Gastrostomy status; Z68.28 Body mass index [BMI] 28.0-28.9, adult; Z79.899 Other long term (current) drug therapy; Z90.49 Acquired absence of other specified parts of digestive tract
CPT/HCPCS: 36415; 36600; 71045; 74330-TC; 80048; 80053; 80076; 80202-TC; 81000-TC; 82570-TC; 82803-TC; 82962; 83605; 83735-TC; 83880; 84302-TC; 85025; 85610-TC; 85730-TC; 87040-TC; 87070-TC; 87081; 87086; 87186-TC; 87205-TC; 93005; 94002; 94003; 94640; 94660; 94760; 96361; 96365; 96375; 99285; C1751; C1769; G0378; J0330; J0696; J1030; J1650; J1940; J2060; J2250; J2270; J2543; J2704; J2930; J3370; J3490; J7030; J7042; J7050; J7060; J7613; Q9967